=== PATIENT | female | born 1955 | race Caucasian/White ===

== ENCOUNTER 2018-02-25 12:53 | Emergency (ER) | payer MEDICARE, MEDICAID ==
[~2018-02-25] VITALS: Ht 170.2 cm; Wt 52.3 kg
[~2018-02-25 12:53] MED LIST: LORA1TAB PO; METH-360 PO
[2018-02-25] MEDS ORDERED: ondansetron 4mg rapidly disintigrating tab PO ONE ×2 (14:00→17:45)
[2018-02-25] MEDS ORDERED: morphine 4 MG/ML inj SYRINge IV ONE ×3 (14:00→21:05)
[2018-02-25] MEDS ORDERED: TRAM50TA2 PO (16:12)
[2018-02-25 16:53] LABS: BASOPHILS % (AUTO) 0.4 % (0-1); EOSINOPHILS # (AUTO) 0.2 X10'3 (0-0.9); EOSINOPHILS % (AUTO) 2.1 % (0-6); HEMATOCRIT 41.5 % (35.0-45.0); HEMOGLOBIN 14.1 g/dl (12.0-16.0); LYMPHOCYTES # (AUTO) 2.3 X10'3 (1.1-4.8); MEAN CORPUSCULAR HEMOGLOBIN 31.5 PG (27.0-31.0); MEAN CORPUSCULAR VOLUME 92.7 FL (78-98); MEAN PLATELET VOLUME 8.9 FL (7.4-10.4); MONOCYTES # (AUTO) 0.6 X10'3 (0-0.9); MONOCYTES % (AUTO) 8.1 % (2-12); NEUTROPHILS # (AUTO) 4.7 X10'3 (1.8-7.7); NEUTROPHILS % (AUTO) 60.4 % (42-75); PLATELET COUNT 156 X10'3 (140-440); RED BLOOD COUNT 4.48 X10'6 (4.20-5.60); RED CELL DISTRIBUTION WIDTH 13.1 % (11.5-14.5); WHITE BLOOD COUNT 7.8 X10'3 (4.5-11.0)
[2018-02-25] MEDS: normal saline 1000ml 1,000 ML IV SCH ×3 (16:55→20:48)
[2018-02-25 17:03] LABS: ALBUMIN 3.5 G/DL (3.4-5.0); ANION GAP 9 (8-16); BLOOD UREA NITROGEN 21 MG/DL (7-18); BUN/CREATININE RATIO 23.6 (6.6-38.0); CALCIUM 8.8 MG/DL (8.5-10.1); CHLORIDE 100 MMOL/L (99-107); CREATININE 0.89 MG/DL (0.40-0.90); GLUCOSE 94 MG/DL (70-104); POTASSIUM 3.9 MMOL/L (3.5-5.1); SODIUM 140 MMOL/L (135-145); TOTAL CARBON DIOXIDE 31.4 MMOL/L (24-32); eGFR 64 ML/MIN
[2018-02-25 17:06] VITALS: BP 96/60
== END 2018-02-25 21:28 | disposition short-term general hospital (02) ==
LOC: ER 12:54
DX: S32.421A Displaced fracture of posterior wall of right acetabulum, initial encounter for closed fracture (principal); E11.9 Type 2 diabetes mellitus without complications; G89.29 Other chronic pain; M25.451 Effusion, right hip; Z86.69 Personal history of other diseases of the nervous system and sense organs; Z98.890 Other specified postprocedural states; Z88.2 Allergy status to sulfonamides; Z88.5 Allergy status to narcotic agent; Z79.899 Other long term (current) drug therapy; W17.89XA Other fall from one level to another, initial encounter; Y93.K1 Activity, walking an animal; Y92.89 Other specified places as the place of occurrence of the external cause; Y99.8 Other external cause status
CPT/HCPCS: 36415; 71045; 73502; 73700; 80048; 85025; 86885; 86900; 86901; 93005; 96374; 96376; 99285; J2270